=== PATIENT | male | born 1950 | race Two or more races ===

== ENCOUNTER 2024-02-17 15:16 | Emergency (ER) | payer MEDICARE ==
[~2024-02-17] VITALS: Ht 180.3 cm; Wt 70.5 kg
[2024-02-17 15:18] VITALS: BP 110/65; PULSE 76; RESP 18; TEMP 98.2
[2024-02-17] MEDS ORDERED: GABA-1181 PO (15:30)
[2024-02-17] MEDS ORDERED: CARB-49 PO (15:30)
[2024-02-17] MEDS ORDERED: QUET25TA PO (15:30)
[2024-02-17] MEDS ORDERED: [UNRECOGNIZED DRUG - CODE] PO (15:30)
[2024-02-17] MEDS ORDERED: LORA10TA7 PO (15:30)
[2024-02-17] MEDS ORDERED: ATOR40TA28 PO (15:30)
[2024-02-17] MEDS ORDERED: HYDR30OI13 TP (15:30)
[2024-02-17] MEDS ORDERED: TAMS0.4C94 PO (15:30)
[2024-02-17] MEDS ORDERED: MEMA10TA24 PO (15:30)
[2024-02-17] MEDS ORDERED: DOCU-385 PO (15:30)
[2024-02-17] MEDS ORDERED: MELA3TAB89 PO (15:30)
[2024-02-17 15:39] LABS: COVID AG,FIA SOURCE NASAL SWAB
[2024-02-17] MEDS: BENZONATATE 100 MG CAPSULE PO ONE (15:51)
[2024-02-17] MEDS: ACETAMINOPHEN 500 MG TABLET PO ONE (15:52)
[2024-02-17] MEDS: GuaiFENesin/D-METHORPHAN [SUGAR-FREE] 200-20MG/10 ML SYRUP UDCUP PO ONE (15:52)
[2024-02-17 15:54] LABS: BASOPHILS % (AUTO) 1.1 % (0.0-2.0); EOSINOPHILS % (AUTO) 11.1 % (1.0-6.0); HEMATOCRIT 47.7 % (41-53); HEMOGLOBIN 15.8 g/dL (13.5-17.5); LYMPHOCYTES # (AUTO) 1.3 K/uL (1.0-4.8); LYMPHOCYTES % (AUTO) 19.3 % (22.0-44.0); MEAN CORPUSCULAR HEMOGLOBIN 30.1 pg (26.0-34.0); MEAN CORPUSCULAR HGB CONC 33.2 G/dL (31.0-37.0); MEAN CORPUSCULAR VOLUME 91 fL (80-100); MONOCYTES % (AUTO) 14.7 % (2.0-9.0); NEUTROPHILS # (AUTO) 3.6 K/uL (1.8-7.7); NEUTROPHILS % (AUTO) 53.8 % (40.0-70.0); PLATELET COUNT (AUTO) 161 K/uL (150-450); RED BLOOD CELL COUNT(AUTO) 5.26 MIL/uL (4.50-5.90); RED CELL DISTRIBUTION WIDTH 13.8 % (11.5-14.5); WHITE BLOOD COUNT (AUTO) 6.6 K/uL (4.5-11.0)
[2024-02-17 15:59] LABS: INFLUENZA TYPE A NEGATIVE FOR TYPE A (NEGATIVE); INFLUENZA TYPE B NEGATIVE FOR TYPE B (NEGATIVE)
[2024-02-17 16:06] LABS: ANION GAP 7 mmol/L (8-16); CALCIUM, TOTAL 8.9 mg/dL (8.8-10.5); CARBON DIOXIDE 27 mmol/L (22-29); CHLORIDE 104 mmol/L (98-107); CREATININE 1.09 mg/dL (0.60-1.30); GLOMERULAR FILTR. RATE CALC > 60 mL/min (>60); GLUCOSE,RANDOM 98 mg/dL (70-110); POTASSIUM 4.1 mmol/L (3.5-5.1); SODIUM SERUM 138 mmol/L (136-145); UREA NITROGEN, BLOOD 12 mg/dL (7-18)
[2024-02-17 16:14] LABS: TROPONIN I-HIGH SENSITIVITY 15 ng/L (<76)
[2024-02-17 16:33] LABS: SARS-COV2 (COVID) ANTIGEN,FIA Positive (Negative)
[2024-02-17] MEDS ORDERED: BENZ-227 PO (17:12)
[2024-02-17] MEDS ORDERED: NIRM1TAB10 PO (17:12)
[2024-02-17] MEDS ORDERED: GUAIF10 PO (17:12)
[2024-02-17] MEDS ORDERED: ACET-66 PO (17:12)
== END 2024-02-17 17:27 | disposition home or self-care (01) ==
LOC: EMS 15:16
DX: U07.1 COVID-19 (principal); J06.9 Acute upper respiratory infection, unspecified; R05.9 Cough, unspecified; Z86.69 Personal history of other diseases of the nervous system and sense organs
CPT/HCPCS: 71045; 80048; 84484; 85025; 87804; 99284; 36415-L1; 36415-TC

== ENCOUNTER 2024-12-31 12:56 | Emergency (ER) | payer MEDICARE, OTHER ==
[~2024-12-31] VITALS: Ht 172.7 cm; Wt 81.0 kg
[~2024-12-31 12:56] MED LIST: ACET-66 PO; AMIT10TA7 PO; ATOR40TA28 PO; BENZ-227 PO; CARB-49 PO; DOCU-385 PO; GABA-1181 PO; GUAI100L96 PO; HYDR30OI13 TP; LORA10TA7 PO; MELA3TAB89 PO; MEMA10TA24 PO; NIRM1TAB10 PO; QUET25TA PO; TAMS0.4C94 PO
[2024-12-31 13:12] VITALS: BP 126/71; PULSE 71; RESP 18; TEMP 98.1; O2SAT 98
[2024-12-31 13:20] LABS: COVID AG,FIA SOURCE NASAL SWAB
[2024-12-31 14:11] LABS: INFLUENZA TYPE A NEGATIVE FOR TYPE A (NEGATIVE); INFLUENZA TYPE B NEGATIVE FOR TYPE B (NEGATIVE); SARS-COV2 (COVID) ANTIGEN,FIA Negative (Negative)
[2024-12-31] MEDS ORDERED: BENZ-227 PO (15:28)
[2024-12-31] MEDS ORDERED: AMOX250C4 PO (15:29)
== END 2024-12-31 15:48 | disposition home or self-care (01) ==
LOC: EMS 12:57
DX: J06.9 Acute upper respiratory infection, unspecified (principal); G20.A1 Parkinson's disease without dyskinesia, without mention of fluctuations; F02.80 Dementia in other diseases classified elsewhere, unspecified severity, without behavioral disturbance, psychotic disturbance, mood disturbance, and anxiety; Z79.899 Other long term (current) drug therapy; Z20.822 Contact with and (suspected) exposure to COVID-19
CPT/HCPCS: 71045; 87804; 99284